=== PATIENT | female | born 1965 | race Caucasian/White ===

== ENCOUNTER → 2017-02-10 | Outpatient (CLI) | payer BC ==
--- NOTE | ~2017-02-10 | MY6 ---
[facility] A Service of [facility] RADIOLOGY TEXT RESULTS PATIENT: DUSTY YOON LOCATION: [facility] SAULT : 69 UNIT #: [id number] AGE: [address]: Zaynab Lott SEX: F ORDER DR: [id number] [facility] [address] [place], [place] [address] [id number] O MR#: [id number] Acc #: [id number] NAME: DUSTY YOON : 1965 SEX: F STUDY DATE/TIME: 02/10/2017 12:54 UNIT: [facility] ROOM: STUDY DESCRIPTION: MY Mammogram Dx Dig [place]o Attending Physician: Zaynab Lott A.P.R.N. Referring Physician: Zaynab Lott A.P.R.N. Ordering Physician: Zaynab Lott A.P.R.N. Primary Care Physician: Velma Bashir Aprn MEDICAL IMAGING REPORT This report is preliminary unless electronic signature is present EXAM Bilateral digital diagnostic mammogram. INDICATIONS 6-month followup. Asymmetric breast tissue on the left. PROCEDURE Bilateral CC and MLO views. True lateral view left breast. Spot compression views left breast CC and MLO projections. COMPARISON 08/12/2016, 02/03/2016, and 01/26/2016. FINDINGS Heterogeneous fibroglandular density could obscure small mass. Overall stable parenchymal pattern. The asymmetric breast tissue in the upper left breast is unchanged and there is no persistent mass. No suspicious calcification. IMPRESSION Negative bilateral diagnostic mammogram. Recommend patient return to yearly screening. Patients over the age of 40 are entered into a reminder system with target due date for the next mammogram. A result letter will also be sent to the patient. BIRADS: 1 Negative. Dictated by... Quang Leonardo M.D. THIS IS AN ELECTRONICALLY VERIFIED REPORT [facility] A Service [facility] RADIOLOGY TEXT RESULTS PATIENT: DUSTY YOON LOCATION: [facility] SAULT : 69 UNIT #: [id number] AGE: [address]: Zaynab Lott SEX: F ORDER DR: Quang Leonardo M.D. at 02/10/2017 4:51 PM EED/jimmy TD: 02/10/2017 13:12 JOB #: [id number] MEDICAL IMAGING REPORT Page 1 of 1 COPY
== END | disposition home or self-care (01) ==
LOC: CMAM 12:12
DX: R92.2 Inconclusive mammogram (principal)
CPT/HCPCS: G0204